=== PATIENT | female | born 1940 | race Caucasian/White ===

== ENCOUNTER 2017-10-15 05:41 | Inpatient (IN) ==
[2017-10-15] MEDS ORDERED: VANCOMYCIN INJ 1,000 MG in SODIUM CHLORIDE 0.9% 250 ML IV ONE (06:00)
[2017-10-15] MEDS ORDERED: ceFAZolin 1,000 MG in SYRINGE 1 EACH IV ONE (06:00)
[2017-10-15] MEDS ORDERED: DIAZEPAM 2 MG TABLET ONE (06:05)
[2017-10-15] MEDS ORDERED: FAMOTIDINE 20 MG TABLET ONE (06:05)
[2017-10-15] MEDS ORDERED: ceFAZolin 1,000 MG VIAL ONE (06:05)
[2017-10-15] MEDS ORDERED: VANCOMYCIN 1,000 MG VIAL ONE (06:05)
[2017-10-15] MEDS ORDERED: SODIUM CHLORIDE 0.9% 0 ML IV ONE (06:07)
[2017-10-15] MEDS ORDERED: DIAZEPAM 2 MG TABLET PO ONE (06:30)
[2017-10-15] MEDS ORDERED: FAMOTIDINE 20 MG TABLET PO ONE (06:30)
[2017-10-15] MEDS ORDERED: diphenhydrAMINE CAP 25 MG CAPSULE PO PRN (08:50)
[2017-10-15] MEDS ORDERED: MORPHINE 2 MG/1 ML SYRINGE IV PRN ×2 (08:50→09:35)
[2017-10-15] MEDS ORDERED: TEMAZEPAM 7.5 MG CAPSULE PO PRN (08:50)
[2017-10-15] MEDS ORDERED: LACTULOSE 20 GM/30 ML UDCUP PO PRN (08:50)
[2017-10-15] MEDS ORDERED: PROMETHAZINE 25 MG/1 ML VIAL IM PRN (08:50)
[2017-10-15] MEDS ORDERED: ONDANSETRON 4 MG/2 ML VIAL IV PRN ×2 (08:50→11:26)
[2017-10-15] MEDS ORDERED: BISACODYL 10 MG SUPP RECTAL PRN (08:50)
[2017-10-15] MEDS ORDERED: NALOXONE 0.4 MG/ML VIAL IV PRN (08:50)
[2017-10-15] MEDS ORDERED: CLORAZEPATE 3.75 MG TABLET PO PRN (08:54)
[2017-10-15] MEDS ORDERED: ZALEPLON 5 MG CAPSULE PO PRN (08:54)
[2017-10-15] MEDS ORDERED: traMADol 50 MG TABLET PO PRN (08:54)
[2017-10-15] MEDS ORDERED: TRANEXAMIC ACID 1,000 MG/10 ML VIAL IV ONE (09:49)
[2017-10-15] MEDS: HYDROmorphone 2 MG/1 ML VIAL IV PRN ×3 (11:15→11:30)
[2017-10-15] MEDS ORDERED: ONDANSETRON 4 MG/2 ML VIAL ONE ×2 (11:16→13:47)
[2017-10-15] MEDS ORDERED: HYDROmorphone 2 MG/1 ML VIAL ONE (11:16)
[2017-10-15] MEDS ORDERED: ROPIVACAINE 0.5% 30 ML VIAL ONE (11:17)
[2017-10-15] MEDS ORDERED: LIDOCAINE 50 MG/5 ML SYRINGE ONE (11:17)
[2017-10-15] MEDS ORDERED: MORPHINE PCA 30 MG/30 ML SYRINGE IV ONE (11:28)
[2017-10-15] MEDS: MORPHINE PCA 30 MG/30 ML SYRINGE IV SCH (11:35)
[2017-10-15] MEDS ORDERED: hydrALAZINE 20 MG/1 ML VIAL ONE (11:58)
[2017-10-15] MEDS ORDERED: hydrALAZINE 20 MG/1 ML VIAL IV ONE (11:58)
[2017-10-15] MEDS: DONEPEZIL 10 MG TABLET PO SCH (12:43)
[2017-10-15] MEDS: DOCUSATE SODIUM 100 MG CAPSULE PO SCH ×2 (12:44→21:08)
[2017-10-15] MEDS: PANTOPRAZOLE 40 MG TABLET PO SCH (12:44)
[2017-10-15] MEDS: busPIRone 10 MG TABLET PO SCH (12:44)
[2017-10-15] MEDS: LACTATED RINGERS 1,000 ML IV SCH ×2 (12:44→12:47)
[2017-10-15] MEDS: GABAPENTIN 100 MG CAPSULE PO SCH ×2 (12:44→21:08)
[2017-10-15] MEDS: MESALAMINE 800 MG TABLET PO SCH (12:44)
[2017-10-15] MEDS: hydroCHLOROthiazide 12.5 MG CAPSULE PO SCH (12:44)
[2017-10-15] MEDS: ENALAPRIL 10 MG TABLET PO SCH (12:45)
[2017-10-15 13:10] LABS: Basophils % 0.3 % (0.0-0.8); Eosinophils # 0.1 10*3/uL (0.0-0.87); Eosinophils % 0.8 % (0.00-10.9); Hematocrit 38.8 VOL% (35.7-47.0); Hemoglobin 12.9 GM/DL (12.0-16.0); Immature Granulocytes % 0.7 %; Immature Granulocytes Absolute 0.07 #; Lymphocytes # 0.9 10*3/uL (1.4-4.0); Lymphocytes % 8.3 % (21.3-54.2); Mean Corpuscular HGB Conc 33.2 GM/DL (32-36); Mean Corpuscular Hemoglobin 30 PG (27-34); Mean Corpuscular Volume 89.4 FL (87-102); Mean Platelet Volume 10.5 FL (9.6-12.0); Monocytes # 0.3 10*3/uL (0.11-0.8); Monocytes % 2.7 % (1.7-12.7); Neutrophils # 9.2 10*3/uL (1.4-7.4); Neutrophils % 87.2 % (38.7-73.9); Platelet Count 189 T/CUMM (130-400); Red Blood Count 4.34 MC/CUMM (3.8-5.5); Red Cell Distribution Width 13.1 % (9.3-17.3); White Blood Count 10.6 T/CUMM (4-12)
[2017-10-15 13:40] LABS: Calcium 8.2 MG/DL (8.5-10.1); Potassium 3.6 MMOL/L (3.5-5.1)
[2017-10-15] MEDS ORDERED: MIDAZOLAM 2 MG/2 ML VIAL ONE (13:47)
[2017-10-15] MEDS ORDERED: KETOROLAC 30 MG/1 ML VIAL ONE (13:47)
[2017-10-15] MEDS ORDERED: fentaNYL 100 MCG/2 ML VIAL ONE (13:47)
[2017-10-15] MEDS ORDERED: SEVOFLURANE 1 UNIT/15 MINUTE INH ONE (13:47)
[2017-10-15] MEDS ORDERED: PHENYLEPHRINE 10 MG/1 ML VIAL IV ONE (13:47)
[2017-10-15] MEDS ORDERED: PROPOFOL 200 MG/20 ML VIAL IV ONE (13:47)
[2017-10-15] MEDS ORDERED: ACETAMINOPHEN 1,000 MG/100 ML VIAL IV ONE (13:48)
[2017-10-15] MEDS ORDERED: LACTATED RINGERS 1,000 ML IV ONE (13:48)
[2017-10-15] MEDS: ceFAZolin 1,000 MG in SYRINGE 1 EACH IV SCH ×2 (14:54→22:53)
[2017-10-15] MEDS ORDERED: ZOLPIDEM 5 MG TABLET PO SCH (21:00)
[2017-10-15] MEDS: FONDAPARINUX 2.5 MG/0.5 ML SYRINGE SUBCUT SCH (21:23)
[2017-10-16 05:58] LABS: Basophils % 0.2 % (0.0-0.8); Eosinophils # 0.1 10*3/uL (0.0-0.87); Eosinophils % 1.1 % (0.00-10.9); Hematocrit 37.2 VOL% (35.7-47.0); Hemoglobin 12.6 GM/DL (12.0-16.0); Immature Granulocytes % 0.5 %; Immature Granulocytes Absolute 0.06 #; Lymphocytes # 0.9 10*3/uL (1.4-4.0); Mean Corpuscular HGB Conc 33.9 GM/DL (32-36); Mean Corpuscular Hemoglobin 30 PG (27-34); Mean Corpuscular Volume 88.6 FL (87-102); Mean Platelet Volume 11.1 FL (9.6-12.0); Monocytes # 0.8 10*3/uL (0.11-0.8); Monocytes % 6.8 % (1.7-12.7); NRBC # 0.05 10*3/uL; Neutrophils # 10.3 10*3/uL (1.4-7.4); Neutrophils % 84.4 % (38.7-73.9); Platelet Count 173 T/CUMM (130-400); Red Cell Distribution Width 13.4 % (9.3-17.3); White Blood Count 12.2 T/CUMM (4-12)
[2017-10-16 06:27] LABS: Calcium 8.2 MG/DL (8.5-10.1); Osmolality,Calculated 280.4 MOS/KG (273-304); Potassium 3.6 MMOL/L (3.5-5.1)
[2017-10-16] MEDS: LACTATED RINGERS 1,000 ML IV SCH (07:35)
[2017-10-16] MEDS ORDERED: ACETAMINOPHEN 325 MG TABLET PO PRN (08:52)
[2017-10-16] MEDS: DONEPEZIL 10 MG TABLET PO SCH (09:19)
[2017-10-16] MEDS: GABAPENTIN 100 MG CAPSULE PO SCH ×2 (09:19→21:31)
[2017-10-16] MEDS: ENALAPRIL 10 MG TABLET PO SCH (09:19)
[2017-10-16] MEDS: hydroCHLOROthiazide 12.5 MG CAPSULE PO SCH (09:19)
[2017-10-16] MEDS: MESALAMINE 800 MG TABLET PO SCH (09:19)
[2017-10-16] MEDS: PANTOPRAZOLE 40 MG TABLET PO SCH (09:19)
[2017-10-16] MEDS: busPIRone 10 MG TABLET PO SCH (09:19)
[2017-10-16] MEDS: DOCUSATE SODIUM 100 MG CAPSULE PO SCH ×2 (09:19→21:31)
[2017-10-16] MEDS: MORPHINE PCA 30 MG/30 ML SYRINGE IV SCH (12:09)
[2017-10-16] MEDS: FONDAPARINUX 2.5 MG/0.5 ML SYRINGE SUBCUT SCH (21:31)
[2017-10-17] MEDS: LACTATED RINGERS 1,000 ML IV SCH (03:06)
[2017-10-17] MEDS: DOCUSATE SODIUM 100 MG CAPSULE PO SCH ×2 (09:46→20:36)
[2017-10-17] MEDS: MESALAMINE 800 MG TABLET PO SCH (09:46)
[2017-10-17] MEDS: DONEPEZIL 10 MG TABLET PO SCH (09:46)
[2017-10-17] MEDS: PANTOPRAZOLE 40 MG TABLET PO SCH (09:46)
[2017-10-17] MEDS: GABAPENTIN 100 MG CAPSULE PO SCH ×2 (09:46→20:36)
[2017-10-17] MEDS: hydroCHLOROthiazide 12.5 MG CAPSULE PO SCH (09:46)
[2017-10-17] MEDS: busPIRone 10 MG TABLET PO SCH (09:46)
[2017-10-17] MEDS: ENALAPRIL 10 MG TABLET PO SCH (09:54)
[2017-10-17] MEDS: MAGNESIUM HYDROXIDE SUSP 30 ML UDCUP PO PRN (09:56)
[2017-10-17] MEDS: FONDAPARINUX 2.5 MG/0.5 ML SYRINGE SUBCUT SCH (20:38)
[2017-10-18] MEDS: MAGNESIUM HYDROXIDE SUSP 30 ML UDCUP PO PRN (05:51)
[2017-10-18] MEDS: DONEPEZIL 10 MG TABLET PO SCH (08:28)
[2017-10-18] MEDS: DOCUSATE SODIUM 100 MG CAPSULE PO SCH (08:29)
[2017-10-18] MEDS: MESALAMINE 800 MG TABLET PO SCH (08:29)
[2017-10-18] MEDS: hydroCHLOROthiazide 12.5 MG CAPSULE PO SCH (08:29)
[2017-10-18] MEDS: busPIRone 10 MG TABLET PO SCH (08:29)
[2017-10-18] MEDS: PANTOPRAZOLE 40 MG TABLET PO SCH (08:29)
[2017-10-18] MEDS: GABAPENTIN 100 MG CAPSULE PO SCH (08:29)
[2017-10-18] MEDS: ENALAPRIL 10 MG TABLET PO SCH (08:29)
[2017-10-18 11:53] VITALS: BP 154/95
== END 2017-10-18 12:35 | disposition swing bed (61) | DRG 470 ==
LOC: N.OR 05:41 → N.SDSINP 05:46 → N.3E 09:31 → EDSTATUS 10:00
PROVIDERS: ADMIT Orthopaedic Surgery; ATTEND Orthopaedic Surgery